=== PATIENT | female | born 1995 | race African-American/Black ===

== ENCOUNTER 2017-12-13 19:57 | Emergency (ER) | payer BC ==
[~2017-12-13] VITALS: Ht 162.6 cm; Wt 64.0 kg
[2017-12-13 21:39] VITALS: BP 118/75
== END 2017-12-13 22:55 | disposition home or self-care (01) ==
LOC: EDBD 19:57 → ER 22:47
DX: R59.0 Localized enlarged lymph nodes (principal); R03.0 Elevated blood-pressure reading, without diagnosis of hypertension
CPT/HCPCS: 99283